=== PATIENT | male | born 1995 | race American Indian/Alaskan Native ===

== ENCOUNTER 2018-10-20 23:01 | Emergency (ER) | payer BC ==
--- NOTE | 2018-10-20 23:50 | Cat Scan Report ---
PROCEDURE: CT HEAD/BRAIN WO CON TECHNIQUE: Computerized tomography of the head was performed without contrast material. CT DOSE LENGTH PRODUCT: mGycm HISTORY: fall head pain COMPARISONS: None . FINDINGS: Brain: Brain density appears normal. No evidence of intracranial hemorrhage. No parenchymal hemorr benja, mass lesions or mass effect are seen. No abnormal extra-axial fluid collects or masses are see n. Ventricles: Ventricles are normal size and are midline. Bone Windows: No evidence of skull fracture. Paranasal sinuses: Visualized portions are clear.. Mastoid air cells: Clear. IMPRESSION: Negative unenhanced CT scan of the brain. No evidence of intracranial hemorrhage or skull fracture. . This document is electronically signed by Babak Silverman MD., Oct 20 2018 11:47:59 PM ET
[2018-10-21 01:01] VITALS: BP 150/78
--- NOTE | 2018-10-21 01:01 | Emergency Department Report ---
ED Syncope HPI - General Chief Complaint: Head Injury Stated Complaint: FELL HIT HEAD Time Seen by Provider: 10/21/18 00:30 Source: patient - History of Present Illness Initial Comments: Mr. Martin is a 22-year-old male with history of hypertension who presents with syncope today. He remembers standing playing video games when he suddenly fell to the ground. He attributed the fainting episodes to not taking his blood pressure medicine over the last 2 days. No history of heart issues. He did hit his head. He did awaken upon intact. No preceding symptoms of chest pain or palpitations. No previous history of fainting. No history of seizure. Timing/Prior Episodes: single episode today Precipitating Factors: Positive: none Context: standing Loss of Consciousness: brief (seconds) Current Symptoms: back to normal - Related Data Allergies/Adverse Reactions: Allergies marci Allergy (Verified 10/20/18 23:07) Unknown venom-wasp Allergy (Verified 10/20/18 23:07) Unknown ED Review of Systems ROS: Stated complaint: FELL HIT HEAD Other details as noted in HPI Comment: All other systems reviewed and negative Constitutional: denies: fever Eyes: denies: eye discharge Respiratory: denies: cough, shortness of breath Cardiovascular: denies: chest pain, palpitations ED Past Medical Hx - Past Medical History Previous Medical History?: Yes Hx Hypertension: Yes - Surgical History Past Surgical History?: Yes Hx Appendectomy: Yes - Social History Smoking Status: Current Every Day Smoker Substance Use Type: Alcohol ED Physical Exam - General Limitations: No Limitations General appearance: alert, in no apparent distress - Head Head exam: Present: atraumatic, normocephalic - Eye Eye exam: Present: normal appearance - ENT ENT exam: Present: mucous membranes moist - Neck Neck exam: Present: normal inspection, full ROM - Respiratory Respiratory exam: Present: normal lung sounds bilaterally. Absent: respiratory distress, wheezes, rales, rhonchi - Cardiovascular Cardiovascular Exam: Present: regular rate, normal rhythm, normal heart sounds. Absent: systolic murmur, diastolic murmur, rubs, gallop - GI/Abdominal GI/Abdominal exam: Present: soft, normal bowel sounds. Absent: distended, tenderness, guarding, rebound - Rectal Rectal exam: Present: deferred - Extremities Exam Extremities exam: Present: normal inspection - Back Exam Back exam: Present: normal inspection - Neurological Exam Neurological exam: Present: alert, oriented X3 - Psychiatric Psychiatric exam: Present: normal affect, normal mood - Skin Skin exam: Present: warm, dry, intact, normal color. Absent: rash ED Course Vital Signs 10/20/18 23:08 Temperature 98.7 F Pulse Rate 58 L Respiratory 18 Rate Blood Pressure 141/85 O2 Sat by Pulse 100 Oximetry ED Medical Decision Making - EKG Data 10/21/18 01:14 EKG obtained 0103 Normal sinus rhythm rate 80 beats a minute normal axis normal intervals no significant ST elevation nonspecific T wave pattern - Radiology Data Radiology results: report reviewed CT head no acute process according to radiology report - Medical Decision Making Ms. Martin presents with syncope and closed head injury. CT head without acute process. EKG unremarkable. Given reassurance. I suspect vasovagal syncope with prolonged standing. Critical care attestation.: If time is entered above; I have spent that time in minutes in the direct care of this critically ill patient, excluding procedure time. ED Disposition Clinical Impression: Syncope, Closed head injury, History of hypertension Disposition: - TO HOME OR SELFCARE Is pt being admited?: No Does the pt Need Aspirin: No Condition: Stable Instructions: Syncope (ED), Minor Head Injury (ED) Referrals: PENNY HENNESSY MD [Primary Care Provider] - 3-5 Days
== END 2018-10-21 01:25 | disposition home or self-care (01) ==
LOC: ED 23:01
DX: S09.90XA Unspecified injury of head, initial encounter (principal); R55 Syncope and collapse; I10 Essential (primary) hypertension; F17.200 Nicotine dependence, unspecified, uncomplicated; Z91.018 Allergy to other foods; Z90.49 Acquired absence of other specified parts of digestive tract; W22.8XXA Striking against or struck by other objects, initial encounter; Y93.89 Activity, other specified; Y92.89 Other specified places as the place of occurrence of the external cause; Y99.8 Other external cause status
CPT/HCPCS: 70450; 93005; 93010; 99283

== ENCOUNTER 2019-02-10 00:25 | Emergency (ER) | payer BC ==
[2019-02-10 01:06] LABS: Bilirubin,Urine NEG (Negative); Blood,Urine NEG (Negative); Color,Urine Yellow (Yellow); Mucus,Urine FEW /HPF; Protein,Urine <15 mg/dL mg/dL (Negative)
[2019-02-10] MEDS ORDERED: NORCO 5/325 PO ONE (02:57)
[2019-02-10 03:32] LABS: Basophils # (Auto) 0.1 K/mm3 (0.0-0.1); Basophils % (Auto) 0.4 % (0.0-1.8); Eosinophils # (Auto) 0.1 K/mm3 (0.0-0.4); Eosinophils % (Auto) 0.9 % (0.0-4.3); Hemoglobin 14.3 gm/dl (11.8-15.2); Lymphocytes # (Auto) 2.1 K/mm3 (1.2-5.4); Lymphocytes % (Auto) 13.8 % (13.4-35.0); Mean Corpuscular HGB Conc 32 % (32-34); Mean Corpuscular Volume 72 fl (84-94); Monocytes # (Auto) 1.1 K/mm3 (0.0-0.8); Monocytes % (Auto) 7.2 % (0.0-7.3); Platelet Count 290 K/mm3 (140-440); Red Blood Count 6.23 M/mm3 (3.65-5.03); Red Cell Distribution Width 14.8 % (13.2-15.2)
[2019-02-10 03:52] LABS: BUN/Creatinine Ratio 13; Blood Urea Nitrogen 14 mg/dL (9-20); Calcium 9.2 mg/dL (8.4-10.2); Hemolysis Index 2
--- NOTE | 2019-02-10 04:05 | Cat Scan Report ---
CT pelvis w con INDICATION: sacral iliac pain and swelling. TECHNIQUE: All CT scans at this location are performed using the following dose modulation technique: Automated exposure control. Helical slices were obtained through the abdomen and pelvis. 100 cc of Omnipaque 30 0 is administered. COMPARISON: None available. FINDINGS: Abdomen: The lung bases are clear. No acute abnormality is seen in the liver, spleen, pancreas, adren al glands, or kidneys. The aorta is normal in diameter. There is no adenopathy. There is no obstructi on, inflammation, or free air. There are no abnormal fluid collections. Pelvis: The bowel is unremarkable. There is no inflammatory change. There are no abnormal fluid colle ctions. On review of bone windows, there is a healed fracture of the right posterior seventh rib. There is dy strophic calcification/ossification arising from the left posterior iliac wing no acute fracture or d islocation is seen. No acute osseous abnormalities are seen. The SI joints are unremarkable. IMPRESSION: There is no obstruction, inflammation, or free air. There are no abnormal fluid collections. No fracture is seen. There is some dystrophic calcification/ossification arising from the posterior left iliac wing. There is an old healed right rib fracture. Signer Name: Ayaan Charles MD Signed: 02/10/2019 4:01 AM Workstation Name: [id number]
[2019-02-10] MEDS ORDERED: ROCEPHIN/NS 1 GM/50 ML 1 GM/50 ML BAG IV ONE (05:13)
[2019-02-10] MEDS ORDERED: TORADOL IV ONE (05:13)
[2019-02-10] MEDS ORDERED: ZOFRAN IV ONE (05:13)
[2019-02-10] MEDS ORDERED: NACL 0.9% 500 ML 500 ML IV ONE (05:13)
--- NOTE | 2019-02-10 05:21 | Emergency Department Report ---
ED Back Pain/Injury HPI - General Chief Complaint: Back Pain/Injury Stated Complaint: BACK PAINS Time Seen by Provider: 02/10/19 05:05 Source: patient Limitations: No Limitations - History of Present Illness Initial Comments: Patient is a 23-year-old -[place] male who presents with bilateral flank pain 2 weeks state urinary urgency and frequency no hematuria no No history of renal stones present no fevers no chills symptoms are exacerbated by nothing symptoms are relieved by nothing per patient patient denies penile discharge patient is denies STI no history of prostatitis there is no testicular pain or swelling MD Complaint: back pain Onset/Timin -: week(s) Similar Symptoms Previously: No Place: home Radiation: abdomen, buttocks Severity: moderate Severity scale (0 -10): 5 Quality: burning Consistency: constant Improves With: none Worsens With: none Context: unknown Associated Symptoms: abdominal pain - Related Data Previous Rx's Medication Instructions Recorded Last Taken Type Naproxen [Naprosyn] 500 mg PO BID PRN #30 tablet 02/10/19 Unknown Rx levoFLOXacin [Levaquin TAB] 500 mg PO QDAY 10 Days #10 tablet 02/10/19 Unknown Rx Allergies Allergy/AdvReac Type Severity Reaction Status Date / Time marci Allergy Unknown Verified 10/20/18 23:07 venom-wasp Allergy Unknown Verified 10/20/18 23:07 ED Review of Systems ROS: Stated complaint: BACK PAINS Other details as noted in HPI Constitutional: denies: chills, fever Eyes: denies: eye pain, eye discharge, vision change ENT: denies: ear pain, throat pain Respiratory: denies: cough, shortness of breath, wheezing Cardiovascular: denies: chest pain, palpitations Endocrine: no symptoms reported Gastrointestinal: abdominal pain. denies: nausea, vomiting, diarrhea Genitourinary: urgency, frequency. denies: dysuria, hematuria, discharge, testicular pain, testicular mass Musculoskeletal: denies: back pain, joint swelling, arthralgia, myalgia Skin: denies: rash, lesions Neurological: denies: headache, weakness, numbness, paresthesias, confusion, abnormal gait, vertigo Psychiatric: denies: anxiety, depression Hematological/Lymphatic: denies: easy bleeding, easy bruising ED Past Medical Hx - Past Medical History Previous Medical History?: Yes Hx Hypertension: Yes - Surgical History Past Surgical History?: Yes Hx Appendectomy: Yes - Social History Smoking Status: Current Every Day Smoker Substance Use Type: None - Medications Home Medications: Home Medications Medication Instructions Recorded Confirmed Last Taken Type Naproxen [Naprosyn] 500 mg PO BID PRN #30 tablet 02/10/19 Unknown Rx levoFLOXacin [Levaquin TAB] 500 mg PO QDAY 10 Days #10 tablet 02/10/19 Unknown Rx ED Physical Exam - General Limitations: No Limitations General appearance: alert, in no apparent distress - Head Head exam: Present: atraumatic, normocephalic - Eye Eye exam: Present: normal appearance, PERRL, EOMI Pupils: Present: normal accommodation - ENT ENT exam: Present: mucous membranes moist - Neck Neck exam: Present: normal inspection, full ROM. Absent: tenderness - Respiratory Respiratory exam: Present: normal lung sounds bilaterally. Absent: respiratory distress, wheezes, stridor, chest wall tenderness - Cardiovascular Cardiovascular Exam: Present: regular rate, normal rhythm, normal heart sounds. Absent: systolic murmur, diastolic murmur, rubs, gallop - GI/Abdominal GI/Abdominal exam: Present: soft, normal bowel sounds. Absent: distended, tenderness, guarding, rebound, rigid, bruit, hernia - Rectal Rectal exam: Present: normal inspection, normal rectal tone, prostate tend erness. Absent: decreased rectal tone, black stool, bloody stool, fecal impaction, hemorrhoids, mass, prostate enlargement - exam: Present: normal inspection, circumcision. Absent: testicular tenderness, urethral discharge, scrotal swelling, vertical testicular lie External exam: Present: normal external exam, erythema - Extremities Exam Extremities exam: Present: normal inspection, full ROM, normal capillary refill. Absent: tenderness, pedal edema, joint swelling, calf tenderness - Back Exam Back exam: Present: normal inspection, full ROM, CVA tenderness (R), CVA tenderness (L). Absent: tenderness, muscle spasm, paraspinal tenderness, vert ebral tenderness, rash noted - Neurological Exam Neurological exam: Present: alert, oriented X3, CN II-XII intact, normal gait, reflexes normal. Absent: motor sensory deficit - Expanded Neurological Exam Expanded Patient oriented to: Present: person, place, time Speech: Present: fluid speech Cranial nerves: EOM's Intact: Normal, Gag Reflex: Normal, Tongue Deviation: Normal, Nystagmus: Normal, Facial Sensation: Normal Cerebellar function: Finger to Nose: Normal, Heel to Delaney: Normal, Romberg: Normal Upper motor neuron: Ivan Neglect: Normal, Pronator Drift: Normal, Sensory Extinction: Normal Sensory exam: Upper Extremity Light Touch: Normal, Upper Extremity Pin Prick: Normal, Upper Extremity Temperature: Normal, UE 2 Point Discrimination: Normal, Lower Extremity Light Touch: Normal, Lower Extremity Pin Prick: Normal, Lower Extremity Temperature: Normal, LE 2 Point Discrimination: Normal Motor strength exam: RUE: 5, LUE: 5, RLE: 5, LLE: 5 DTR: bicep (R): 2+, bicep (L): 2+, ankle (R): 2+, ankle (L): 2+ Best Eye Response (Carl): (4) open spontaneously Best Motor Response (Carl): (6) obeys commands Best Verbal Response ([place]): (5) oriented Carl Total: 15 - Psychiatric Psychiatric exam: Present: normal affect, normal mood - Skin Skin exam: Present: warm, dry, intact, normal color. Absent: rash ED Course Vital Signs 02/10/19 02/10/19 02/10/19 00:33 03:21 04:21 Temperature 99.9 F H Pulse Rate 112 H Respiratory 18 16 16 Rate Blood Pressure 153/98 O2 Sat by Pulse 98 Oximetry 02/10/19 05:38 Temperature Pulse Rate Respiratory 16 Rate Blood Pressure O2 Sat by Pulse Oximetry ED Medical Decision Making - Lab Data Result diagrams: 02/10/19 03:06 02/10/19 03:06 Labs 02/10/19 02/10/19 02/10/19 00:49 03:06 03:06 WBC 15.0 H RBC 6.23 H Hgb 14.3 Hct 45.0 MCV 72 L MCH 23 L MCHC 32 RDW 14.8 Plt Count 290 Lymph % (Auto) 13.8 [place] % (Auto) 7.2 Eos % (Auto) 0.9 Baso % (Auto) 0.4 Lymph # 2.1 [place] # 1.1 H Eos # 0.1 Baso # 0.1 Seg Neutrophils % 77.7 H Seg Neutrophils # 11.6 H Sodium 141 Potassium 4.1 Chloride 100.4 Carbon Dioxide 27 Anion Gap 18 BUN 14 Creatinine 1.1 Estimated GFR > 60 BUN/Creatinine Ratio 13 Glucose 89 Calcium 9.2 Urine Color Yellow Urine Turbidity Clear Urine pH 6.0 Ur Specific [place] 1.028 Urine Protein <15 mg/dl Urine Glucose (UA) Neg Urine Ketones Neg Urine Blood Neg Urine Nitrite Neg Urine Bilirubin Neg Urine Urobilinogen 4.0 Ur Leukocyte Esterase Sm Urine WBC (Auto) 29.0 H Urine RBC (Auto) 4.0 Urine Mucus Few - Radiology Data Radiology results: report reviewed, image reviewed Ordering Physician: MAYA HERBERT Date of Service: 02/10/19 Procedure(s): CT pelvis w con Accession Number(s): [id number] cc: MAYA HERBERT CT pelvis w con INDICATION: sacral iliac pain and swelling. TECHNIQUE: All CT scans at this location are performed using the following dose modulation technique: Automated exposure control. Helical slices were obtained through the abdomen and pelvis. 100 cc of Omnipaque 300 is administered. COMPARISON: None available. FINDINGS: Abdomen: The lung bases are clear. No acute abnormality is seen in the liver, spleen, pancreas, adrenal glands, or kidneys. The aorta is normal in diameter. There is no adenopathy. There is no obstruction, inflammation, or free air. There are no abnormal fluid collections. Pelvis: The bowel is unremarkable. There is no inflammatory change. There are no abnormal fluid collections. On review of bone windows, there is a healed fracture of the right posterior seventh rib. There is dystrophic calcification/ossification arising from the left posterior iliac wing no acute fracture or dislocation is seen. No acute osseous abnormalities are seen. The SI joints are unremarkable. IMPRESSION: There is no obstruction, inflammation, or free air. There are no abnormal fluid collections. No fracture is seen. There is some dystrophic calcification/ossification arising from the posterior left iliac wing. There is an old healed right rib fracture. Signer Name: Ayaan Charles MD Signed: 02/10/2019 4:01 AM Workstation Name: [id number] Transcribed By: Dictated By: Ayaan Charles MD Electronically Authenticated By: Ayaan Charles MD Signed Date/Time: 02/10/19 040 DD/ [id number] TD/TT: - Medical Decision Making this is UTI , wbc: 15, cmp: normal pt is voiding with miinimal distress. pt for dc to home at this time via pov and family member pt is a/o x 3 - Differential Diagnosis UTI, renal stones, Postatitis, Orchitiis, Epididymitis Critical care attestation.: If time is entered above; I have spent that time in minutes in the direct care of this critically ill patient, excluding procedure time. ED Disposition Clinical Impression: UTI (urinary tract infection) Qualifiers: Urinary tract infection type: acute cystitis Hematuria presence: without hematu regis Qualified Code(s): N30.00 - Acute cystitis without hematuria Disposition: DC-01 TO HOME OR SELFCARE Is pt being admited?: No Does the pt Need Aspirin: No Condition: Stable Instructions: Urinary Tract Infection in Men (ED) Prescriptions: levoFLOXacin [Levaquin TAB] 500 mg PO QDAY 10 Days #10 tablet Naproxen [Naprosyn] 500 mg PO BID PRN #30 tablet PRN Reason: pain Referrals: PRIMARY CARE, [Primary Care Provider] - 3-5 Days Forms: Work/School Release Form(ED)
[2019-02-10 06:43] VITALS: BP 136/85
== END 2019-02-10 06:43 | disposition home or self-care (01) ==
LOC: ED 00:25
DX: N39.0 Urinary tract infection, site not specified (principal); I10 Essential (primary) hypertension; F17.200 Nicotine dependence, unspecified, uncomplicated; Z79.899 Other long term (current) drug therapy; Z91.018 Allergy to other foods; Z91.048 Other nonmedicinal substance allergy status
CPT/HCPCS: 36415; 72193; 80048; 81001; 85025; 87086; 96365; 96375; 99284; J0696; J1885; J2405; J7040; Q9967